=== PATIENT | male | born 1965 | race Caucasian/White ===

== ENCOUNTER 2020-07-01 13:35 | Emergency (ER) | payer BC, OTHER ==
[2020-07-01 13:59] VITALS: BP 128/89; PULSE 106
[2020-07-01] MEDS ORDERED: Sodium Chloride 0.9% 10 ML Syringe FLUSH PRN (14:02)
--- NOTE | 2020-07-01 14:45 | CR ---
Chest: Portable view of the chest was obtained. Comparison: No prior chest imaging is available. Findings: Lungs: Diffuse increased density within both sides of the chest are seen. No pleural effusions are seen on this study. Heart size and mediastinum: Within normal limits Bony structures: Mild scoliosis is noted within the spine. No acute osseous finding is seen. Impression: 1. Diffuse increased density on both sides of the chest. These findings are most likely due to diffuse Covid pneumonia. Diagnostic code #3
[2020-07-01] MEDS ORDERED: Potassium Chloride 20 MEQ Tab.ER PO ONE (16:16)
[2020-07-01] MEDS ORDERED: Sodium Chloride 0.9% 10 ML Syringe FLUSH STA (16:18)
[2020-07-01] MEDS ORDERED: Iopamidol 755 Mg/ML 100 ML Bottle IVPUSH ONE (16:18)
--- NOTE | 2020-07-01 16:18 | EDM.PDOC ---
ED HPI GENERAL MEDICAL PROBLEM - General Chief Complaint: Respiratory Problem Stated Complaint: COVID + 2 WEEKS AGO LOW O2 SENT BY CLINIC Time Seen by Provider: 07/01/20 13:52 - History of Present Illness INITIAL COMMENTS - FREE TEXT/NARRATIVE: Patient is a 55-year-old male presenting to the emergency department with complaints of worsening shortness of breath as well as ongoing fever, chills, of taste and smell, and decreased appetite. Symptoms began about 3 weeks ago. He was diagnosed as Covid positive on 21 June. He states that he thought he was improving as he was able to eat better and was regaining some of his taste over the last few days. This morning upon waking, he was significantly more short of breath. He denies any significant cough. He has had no abdominal pain, nausea, vomiting, or diarrhea. He was seen at the [place] walk-in [facility] prior to coming to the ER. He was sent here due to an oxygen saturation of 81% on room air after ambulation. Headache Pain Score (Numeric/FACES): 5 - Related Data Allergies Allergy/AdvReac Type Severity Reaction Status Date / Time No Known Allergies Allergy Verified 05/17/15 18:29 Home Meds: Home Meds . [No Known Home Meds] 05/17/15 [History] Past Medical History - Past Health History Medical/Surgical History: Denies Medical/Surgical History Social & Family History - Tobacco Use Tobacco Use Status *Q: Never Tobacco User - Caffeine Use Caffeine Use: Reports: Soda - Recreational Drug Use Recreational Drug Use: No ED ROS GENERAL - Review of Systems Review Of Systems: See Below Constitutional: Reports: Fever, Chills, Weakness, Fatigue HEENT: Reports: No Symptoms Respiratory: Reports: Shortness of Breath. Denies: Cough Cardiovascular: Reports: Dyspnea on Exertion. Denies: Chest Pain, Lightheadedness, Palpitations, Syncope Endocrine: Reports: No Symptoms GI/Abdominal: Reports: No Symptoms : Reports: No Symptoms Musculoskeletal: Reports: No Symptoms Skin: Reports: No Symptoms Neurological: Reports: Headache. Denies: Confusion Psychiatric: Reports: No Symptoms Hematologic/Lymphatic: Reports: No Symptoms Immunologic: Reports: No Symptoms ED EXAM, GENERAL - Physical Exam Exam: See Below Exam Limited By: No Limitations General Appearance: Alert, WD/WN, No Apparent Distress Respiratory/Chest: No Respiratory Distress, Lungs Clear, No Accessory Muscle Use, Chest Non-Tender, Rhonchi (faint throughout) Cardiovascular: Normal Peripheral Pulses, Regular Rate, Rhythm, No Edema, No Gallop, No JVD, No Murmur, No Rub GI/Abdominal: Normal Bowel Sounds, Soft, Non-Tender, No Organomegaly, No Distention, No Abnormal Bruit, No Mass Neurological: Alert, Oriented, CN II-XII Intact, Normal Cognition, Normal Gait, Normal Reflexes, No Motor/Sensory Deficits Psychiatric: Normal Affect, Normal Mood Skin Exam: Warm, Dry, Intact, Normal Color, No Rash Course - Vital Signs Last Recorded V/S: Last Vital Signs Temp 98.7 F 07/01/20 13:56 Pulse 106 H 07/01/20 13:56 Resp 20 07/01/20 13:56 BP 128/89 07/01/20 13:56 Pulse Ox 83 L 07/01/20 13:56 - Orders/Labs/Meds Orders: Active Orders 24 hr Category Date Time Status Peripheral IV Insertion Adult [OM.PC] Stat Oth 07/01/20 14:02 Ordered Labs: Laboratory Tests 07/01/20 07/01/20 07/01/20 Range/Units 14:21 14:30 14:30 WBC 9.71 H (4.23-9.07) K/mm3 RBC 5.13 (4.63-6.08) M/mm3 Hgb 14.8 (13.7-17.5) gm/dl Hct 46.5 (40.1-51.0) % MCV 90.6 (79.0-92.2) fl MCH 28.8 (25.7-32.2) pg MCHC 31.8 L (32.2-35.5) g/dl RDW Std Deviation 44.0 H (35.1-43.9) fL Plt Count 599 H (163-337) K/mm3 MPV 9.1 L (9.4-12.3) fl Neut % (Auto) 79.3 H (34.0-67.9) % Lymph % (Auto) 9.2 L (21.8-53.1) % [place] % (Auto) 10.2 (5.3-12.2) % Eos % (Auto) 0.2 L (0.8-7.0) Baso % (Auto) 0.3 (0.1-1.2) % Neut # (Auto) 7.70 H (1.78-5.38) K/mm3 Lymph # (Auto) 0.89 L (1.32-3.57) K/mm3 [place] # (Auto) 0.99 H (0.30-0.82) K/mm3 Eos # (Auto) 0.02 L (0.04-0.54) K/mm3 Baso # (Auto) 0.03 (0.01-0.08) K/mm3 Manual Slide Review Normal smear D-Dimer, Quantitative 1.71 H (0.19-0.50) mg/L Puncture Site Lt radial ABG pH 7.62 H* (7.35-7.45) ABG pCO2 27.4 L (35.0-45.0) mmHg ABG pO2 52.0 L (80.0-100.0) mmHg ABG HCO3 28.4 H (22.0-26.0) meq/L ABG O2 Saturation 87.0 L (96.0-97.0) % ABG Base Excess 7.6 H (-2-2.0) Kurt Test Positive A-a Gradient 63 mmHg O2 Delivery Device Room air Oxygen Flow Rate 0.0 FiO2 21.00 (21.00-100.00) % Sodium (136-145) mEq/L Potassium (3.5-5.1) mEq/L Chloride (98-107) mEq/L Carbon Dioxide (21-32) mEq/L Anion Gap (5-15) BUN (7-18) mg/dL Creatinine (0.7-1.3) mg/dL Est Cr Clr Drug Dosing mL/min Estimated GFR (MDRD) (>60) mL/min BUN/Creatinine Ratio (14-18) Glucose (74-106) mg/dL Calcium (8.5-10.1) mg/dL Ferritin (26-388) ng/ml Total Bilirubin (0.2-1.0) mg/dL AST (15-37) U/L ALT (16-63) U/L Alkaline Phosphatase (46-116) U/L Lactate Dehydrogenase (85-227) U/L Troponin I (0.00-0.056) ng/mL C-Reactive Protein (<1.0) mg/dL NT-Pro-B Natriuret Pep (0-125) pg/mL Total Protein (6.4-8.2) g/dl Albumin (3.4-5.0) g/dl Globulin gm/dL Albumin/Globulin Ratio (1-2) 07/01/20 07/01/20 07/01/20 Range/Units 14:30 14:30 14:30 WBC (4.23-9.07) K/mm3 RBC (4.63-6.08) M/mm3 Hgb (13.7-17.5) gm/dl Hct (40.1-51.0) % MCV (79.0-92.2) fl MCH (25.7-32.2) pg MCHC (32.2-35.5) g/dl RDW Std Deviation (35.1-43.9) fL Plt Count (163-337) K/mm3 MPV (9.4-12.3) fl Neut % (Auto) (34.0-67.9) % Lymph % (Auto) (21.8-53.1) % [place] % (Auto) (5.3-12.2) % Eos % (Auto) (0.8-7.0) Baso % (Auto) (0.1-1.2) % Neut # (Auto) (1.78-5.38) K/mm3 Lymph # (Auto) (1.32-3.57) K/mm3 [place] # (Auto) (0.30-0.82) K/mm3 Eos # (Auto) (0.04-0.54) K/mm3 Baso # (Auto) (0.01-0.08) K/mm3 Manual Slide Review D-Dimer, Quantitative (0.19-0.50) mg/L Puncture Site ABG pH (7.35-7.45) ABG pCO2 (35.0-45.0) mmHg ABG pO2 (80.0-100.0) mmHg ABG HCO3 (22.0-26.0) meq/L ABG O2 Saturation (96.0-97.0) % ABG Base Excess (-2-2.0) Kurt Test A-a Gradient mmHg O2 Delivery Device Oxygen Flow Rate FiO2 (21.00-100.00) % Sodium 136 (136-145) mEq/L Potassium 2.9 L (3.5-5.1) mEq/L Chloride 96 L (98-107) mEq/L Carbon Dioxide 32 (21-32) mEq/L Anion Gap 10.9 (5-15) BUN 9 (7-18) mg/dL Creatinine 1.2 (0.7-1.3) mg/dL Est Cr Clr Drug Dosing 70.97 mL/min Estimated GFR (MDRD) > 60 (>60) mL/min BUN/Creatinine Ratio 7.5 L (14-18) Glucose 106 (74-106) mg/dL Calcium 9.1 (8.5-10.1) mg/dL Ferritin (26-388) ng/ml Total Bilirubin 0.9 (0.2-1.0) mg/dL AST 55 H (15-37) U/L ALT 54 (16-63) U/L Alkaline Phosphatase 71 (46-116) U/L Lactate Dehydrogenase 391 H (85-227) U/L Troponin I < 0.017 (0.00-0.056) ng/mL C-Reactive Protein 31.9 H* (<1.0) mg/dL NT-Pro-B Natriuret Pep 151 H (0-125) pg/mL Total Protein 7.7 (6.4-8.2) g/dl Albumin 2.3 L (3.4-5.0) g/dl Globulin 5.4 gm/dL Albumin/Globulin Ratio 0.4 L (1-2) 07/01/20 Range/Units 14:30 WBC (4.23-9.07) K/mm3 RBC (4.63-6.08) M/mm3 Hgb (13.7-17.5) gm/dl Hct (40.1-51.0) % MCV (79.0-92.2) fl MCH (25.7-32.2) pg MCHC (32.2-35.5) g/dl RDW Std Deviation (35.1-43.9) fL Plt Count (163-337) K/mm3 MPV (9.4-12.3) fl Neut % (Auto) (34.0-67.9) % Lymph % (Auto) (21.8-53.1) % [place] % (Auto) (5.3-12.2) % Eos % (Auto) (0.8-7.0) Baso % (Auto) (0.1-1.2) % Neut # (Auto) (1.78-5.38) K/mm3 Lymph # (Auto) (1.32-3.57) K/mm3 [place] # (Auto) (0.30-0.82) K/mm3 Eos # (Auto) (0.04-0.54) K/mm3 Baso # (Auto) (0.01-0.08) K/mm3 Manual Slide Review D-Dimer, Quantitative (0.19-0.50) mg/L Puncture Site ABG pH (7.35-7.45) ABG pCO2 (35.0-45.0) mmHg ABG pO2 (80.0-100.0) mmHg ABG HCO3 (22.0-26.0) meq/L ABG O2 Saturation (96.0-97.0) % ABG Base Excess (-2-2.0) Kurt Test A-a Gradient mmHg O2 Delivery Device Oxygen Flow Rate FiO2 (21.00-100.00) % Sodium (136-145) mEq/L Potassium (3.5-5.1) mEq/L Chloride (98-107) mEq/L Carbon Dioxide (21-32) mEq/L Anion Gap (5-15) BUN (7-18) mg/dL Creatinine (0.7-1.3) mg/dL Est Cr Clr Drug Dosing mL/min Estimated GFR (MDRD) (>60) mL/min BUN/Creatinine Ratio (14-18) Glucose (74-106) mg/dL Calcium (8.5-10.1) mg/dL Ferritin 2267 H (26-388) ng/ml Total Bilirubin (0.2-1.0) mg/dL AST (15-37) U/L ALT (16-63) U/L Alkaline Phosphatase (46-116) U/L Lactate Dehydrogenase (85-227) U/L Troponin I (0.00-0.056) ng/mL C-Reactive Protein (<1.0) mg/dL NT-Pro-B Natriuret Pep (0-125) pg/mL Total Protein (6.4-8.2) g/dl Albumin (3.4-5.0) g/dl Globulin gm/dL Albumin/Globulin Ratio (1-2) Meds: Medications Discontinued Medications Generic Name Dose Route Start Last Admin Trade Name Randolph PRN Reason Stop Dose Admin Dexamethasone 6 mg 07/01/20 16:43 07/01/20 17:15 Decadron IVPUSH 07/01/20 16:44 6 mg ONETIME ONE Administration Sodium Chloride 100 mls @ 60 mls/min 07/01/20 16:30 07/01/20 16:21 Normal Saline IV 60 mls/min ASDIRECTED LEXUS Administration Iopamidol 100 ml 07/01/20 16:18 07/01/20 16:20 Isovue-370 (76%) IVPUSH 07/01/20 16:19 100 ml ONETIME ONE Administration Potassium Chloride 40 meq 07/01/20 16:16 07/01/20 17:13 Klor-Con M20 PO 07/01/20 16:17 40 meq ONETIME ONE Administration Sodium Chloride 10 ml 07/01/20 14:02 07/01/20 15:21 Saline Flush FLUSH 10 ml ASDIRECTED PRN Administration Keep Vein Open Sodium Chloride 10 ml 07/01/20 16:18 07/01/20 16:20 Saline Flush FLUSH 07/01/20 16:19 10 ml NOW STA Administration - Re-Assessments/Exams Free Text/Narrative Re-Assessment/Exam: Patient is a 55-year-old male presenting to the emergency department with complaints of worsening shortness of breath, as well as ongoing fever, chills, loss of taste and smell, and decreased appetite. Symptoms have been occurring for 3 weeks and he was diagnosed Covid positive on 21 June. Patient has had shortness of breath with exertion throughout much of his illness, however it was substantially worse today. He is denied any chest pain. Oxygen saturation in triage was 83% on room air. I have ordered Covid work-up including CBC, CMP, CRP, D-dimer, troponin, proBNP, LDH, ferritin, ABGs, 1 view chest x-ray, and EKG. If D-dimer is elevated, as I suspect it will be, I will complete a CT ang iogram of the chest to rule out PEs. 07/01/20 17:07 Hematology was significant for WBC minimally elevated at 9.71, D-dimer 1.71, potassium 2.9 ferritin 2267, LDH 391, CRP 31.9, proBNP 151. ABGs completed on room air show a pH of 7.62, PCO2 27.4, PO2 52.0 bicarb 28.4 and oxygen saturation of 87%. Chest x-ray shows diffuse bilateral infiltrates. CT angiogram the chest shows diffuse parenchymal densities within both sides of the chest most likely due to pneumonia, possibly Covid pneumonia. No findings of pulmonary embolism. I have ordered dexamethasone 6 mg IV as well as potassium 40 mEq p.o. Called [facility] and spoke with Dr. Lozano. He has accepted the patient for transfer. Departure - Departure Time of Disposition: 17:07 Disposition: DC/Tfer to [facility] 02 Condition: Good Clinical Impression: Pneumonia due to COVID-19 virus, Hypoxia - Discharge Information Referrals: PCP,None [Primary Care Provider] - Forms: ED Department Discharge Sepsis Event Note (ED) - Evaluation Sepsis Screening Result: No Definite Risk - My Orders Last 24 Hours: My Active Orders 07/01/20 14:02 Peripheral IV Insertion Adult [OM.PC] Stat - Assessment/Plan Last 24 Hours: My Active Orders 07/01/20 14:02 Peripheral IV Insertion Adult [OM.PC] Stat
[2020-07-01] MEDS ORDERED: Sodium Chloride 0.9% 100 ML IV SCH (16:30)
--- NOTE | 2020-07-01 16:37 | CT ---
CT chest Technique: Multiple axial sections through the chest were obtained. Intravenous contrast was utilized. Study has been performed as a pulmonary angiogram protocol. Findings: Pulmonary arteries: Pulmonary arteries are fairly well opacified. No filling defects are appreciated to indicate definite pulmonary embolism. Mediastinum and pleural regions: Mediastinum shows small scattered lymph nodes which are believed to be within normal limits. Thoracic aorta shows no aneurysm. No axillary adenopathy is seen. No pericardial thickening is seen. Abdominal structures: Minimal hiatal hernia is present. Small portion of the visualized upper abdominal structures show no additional abnormality. Lungs: Multiple areas of parenchymal density are seen throughout both lungs involving the right and left lower and upper lungs. No pleural effusions are seen. Bones: Bone window settings were reviewed which show scattered disc space narrowing within the spine. Several compression deformities are seen within the mid thoracic spine which appear old. Scattered endplate osteophytes are also seen. Impression: 1. Diffuse parenchymal densities within both sides of the chest most likely due to pneumonia, possibly COVID pneumonia. 2. No findings of pulmonary embolism. 3. Other findings as noted above which are believed to be incidental. Diagnostic code #3
[2020-07-01] MEDS ORDERED: Dexamethasone 4 MG/ML SDV IVPUSH ONE (16:43)
== END 2020-07-01 18:22 ==
LOC: JD.ED 13:35
DX: U07.1 COVID-19 (principal); J12.89 Other viral pneumonia; R09.02 Hypoxemia
CPT/HCPCS: 36415; 36600; 71045; 71275; 80053; 82728; 82803; 83615; 83880; 84484; 85025; 85379; 86140; 96374; 99285; A9270; J1100; Q9967

== ENCOUNTER 2020-07-10 11:29 | Inpatient (IN) | payer BC ==
[2020-07-10] MEDS: Sodium Chloride 0.9% 10 ML Syringe FLUSH PRN ×2 (12:01→13:29)
--- NOTE | 2020-07-10 12:05 | EDM.PDOC ---
ED HPI GENERAL MEDICAL PROBLEM - General Chief Complaint: Respiratory Problem Stated Complaint: CHEST TIGHTNESS/COUGHING BLOOD. COVID + Time Seen by Provider: 07/10/20 11:39 Source of Information: Reports: Patient, Old Records, RN Notes Reviewed History Limitations: Reports: No Limitations - History of Present Illness INITIAL COMMENTS - FREE TEXT/NARRATIVE: Patient is a 55-year-old male who presents to the ED for his ongoing illness with COVID-19. The patient became symptomatic with [id number] illness on June 16, and diagnosed with COVID-19 on 06/21. The patient was seen in this ER on July 01, and was hospitalized at [facility] for 5 days with IV therapy, oxygen for his COVID-19 disease. He was discharged on Tuesday, July 07 with home oxygen at 3 L via nasal cannula. Patient notes that the first few days went pretty good, but today he had to increase his oxygen to 4 L via nasal cannula to a state what he said were O2 sats in the high to mid 80s. He did use his inhaler that was given to him as well, and notes that he has had some increased chest pressure, and coughing. He called the nurse at [facility] in [place], and she advised him to come to the ER for evaluation. Patient is set up to see Dr. Montoya on Tuesday for continuing health care. Patient takes aspirin, and was sent home with some dexamethasone as well for treatment of his COVID-19 disease. He has not had any fevers or chills, nausea/vomiting/diarrhea, headache, body aches. Patient's O2 sats on 4 L of oxygen are 92%, pulse rate is 102 bpm, but he states he did use his albuterol inhaler prior to coming to the ER for his coughing. He is afebrile at 97.5 �F, he is in no visible respiratory distress, and respiratory rate is 20. Chest Pain Score (Numeric/FACES): 3 - Related Data Allergies Allergy/AdvReac Type Severity Reaction Status Date / Time No Known Allergies Allergy Verified 05/17/15 18:29 Home Meds: Home Meds Acetaminophen [Tylenol] 500 mg PO Q4H PRN 07/10/20 [History] Albuterol Sulfate [Proventil Hfa] 1 puff INH ASDIRECTED 07/10/20 [History] Aspirin [Aspirin EC] 81 mg PO DAILY 07/10/20 [History] dexAMETHasone [Dexamethasone] 6 mg PO DAILY 07/10/20 [History] Past Medical History - Past Health History Medical/Surgical History: Denies Medical/Surgical History - Infectious Disease History Infectious Disease History: Reports: Novel Coronavirus (06/16/2020) Social & Family History - Tobacco Use Tobacco Use Status *Q: Never Tobacco User - Caffeine Use Caffeine Use: Reports: Soda, Tea - Recreational Drug Use Recreational Drug Use: No ED ROS GENERAL - Review of Systems Review Of Systems: Comprehensive ROS is negative, except as noted in HPI. ED EXAM, GENERAL - Physical Exam Exam: See Below Exam Limited By: No Limitations General Appearance: Alert, WD/WN, No Apparent Distress Respiratory/Chest: No Respiratory Distress, Lungs Clear, Normal Breath Sounds, No Accessory Muscle Use, Chest Non-Tender Cardiovascular: Normal Peripheral Pulses, Regular Rate, Rhythm, No Edema, No Murmur Peripheral Pulses: 2+: Radial (L), Radial (R) Extremities: Normal Inspection, Normal Capillary Refill Neurological: Alert, Oriented, Normal Cognition, No Motor/Sensory Deficits Psychiatric: Normal Affect, Normal Mood, Anxious (slightly) Skin Exam: Warm, Dry, Intact, Normal Color, No Rash #1 Interpretation EKG Date: 07/10/20 Time: 12:05 Rhythm: NSR Rate (Beats/Min): 92 [place]: Normal P-Wave: Present QRS: Normal ST-T: Normal QT: Normal WA/PQ Interval: short @ <110ms Comparison: NA - No Prior EKG EKG Interpretation Comments: No obvious ischemia or acute ST changes noted, reviewed by myself and Dr. Fletcher. Course - Vital Signs Last Recorded V/S: Last Vital Signs Temp 97.5 F 07/10/20 11:42 Pulse 102 H 07/10/20 11:42 Resp 20 07/10/20 11:42 BP 125/85 07/10/20 11:42 Pulse Ox 92 L 07/10/20 11:42 - Orders/Labs/Meds Orders: Active Orders 24 hr Category Date Time Status Admission Status [Patient Status] [ADT] Routine ADT 07/10/20 14:59 Active EKG Documentation Completion [RC] STAT Care 07/10/20 11:58 Active Notify Provider Consults [RC] ASDIRECTED Care 07/10/20 13:01 Active Peripheral IV Care [RC] . DIRECTED Care 07/10/20 11:58 Active Consult to Physician [CONS] Stat Cons 07/10/20 12:58 Active Chest 1V Frontal [CR] Stat Exams 07/10/20 11:56 Taken Chest 1V-Tube Placement Chk NC [CR] Stat Exams 07/10/20 14:00 Taken Sodium Chloride 0.9% [Normal Saline] 1,000 ml Med 07/10/20 13:30 Active IV ASDIRECTED Sodium Chloride 0.9% [Saline Flush] Med 07/10/20 11:56 Active 10 ml FLUSH ASDIRECTED PRN Peripheral IV Insertion Adult [OM.PC] Routine Oth 07/10/20 11:56 Ordered Medication Orders Sodium Chloride (Normal Saline) 1,000 mls @ 150 mls/hr IV ASDIRECTED LEXUS Last Admin: 07/10/20 13:29 Dose: 75 mls/hr Documented by: TAHIR Sodium Chloride (Saline Flush) 10 ml FLUSH ASDIRECTED PRN PRN Reason: Keep Vein Open Last Admin: 07/10/20 13:29 Dose: 10 ml Documented by: Admin: 07/10/20 12:01 Dose: 10 ml Documented by: GUME Labs: Laboratory Tests 07/10/20 07/10/20 07/10/20 Range/Units 11:45 11:45 11:45 WBC 22.93 H (4.23-9.07) K/mm3 RBC 5.52 (4.63-6.08) M/mm3 Hgb 16.2 (13.7-17.5) gm/dl Hct 50.6 (40.1-51.0) % MCV 91.7 (79.0-92.2) fl MCH 29.3 (25.7-32.2) pg MCHC 32.0 L (32.2-35.5) g/dl RDW Std Deviation 46.2 H (35.1-43.9) fL Plt Count 554 H (163-337) K/mm3 MPV 9.6 (9.4-12.3) fl Neutrophils % (Manual) 92 H (40-60) % Band Neutrophils % 0 (0-10) % Lymphocytes % (Manual) 7 L (20-40) % Atypical Lymphs % 0 % Monocytes % (Manual) 1 L (2-10) % Eosinophils % (Manual) 0 L (0.8-7.0) % Basophils % (Manual) 0 L (0.2-1.2) Platelet Estimate Increased Plt Morphology Comment See note RBC Morph Comment Normal PT 10.9 (9.7-12.0) SECONDS INR 1.02 APTT 28.4 (21.7-31.4) SECONDS D-Dimer, Quantitative 2.15 H (0.19-0.50) mg/L Sodium 137 (136-145) mEq/L Potassium 3.9 (3.5-5.1) mEq/L Chloride 99 (98-107) mEq/L Carbon Dioxide 27 (21-32) mEq/L Anion Gap 14.9 (5-15) BUN 18 (7-18) mg/dL Creatinine 1.3 (0.7-1.3) mg/dL Est Cr Clr Drug Dosing 65.51 mL/min Estimated GFR (MDRD) 57 (>60) mL/min BUN/Creatinine Ratio 13.8 L (14-18) Glucose 100 (74-106) mg/dL Calcium 9.4 (8.5-10.1) mg/dL Total Bilirubin 0.9 (0.2-1.0) mg/dL AST 20 (15-37) U/L ALT 81 H (16-63) U/L Alkaline Phosphatase 88 (46-116) U/L Troponin I < 0.017 (0.00-0.056) ng/mL C-Reactive Protein 1.6 H* (<1.0) mg/dL Total Protein 7.7 (6.4-8.2) g/dl Albumin 2.9 L (3.4-5.0) g/dl Globulin 4.8 gm/dL Albumin/Globulin Ratio 0.6 L (1-2) Meds: Medications Generic Name Dose Route Start Last Admin Trade Name Freq PRN Reason Stop Dose Admin Sodium Chloride 1,000 mls @ 150 mls/hr 07/10/20 13:30 07/10/20 13:29 Normal Saline IV 75 mls/hr ASDIRECTED LEXUS Administration Sodium Chloride 10 ml 07/10/20 11:56 07/10/20 13:29 Saline Flush FLUSH 10 ml ASDIRECTED PRN Administration Keep Vein Open Discontinued Medications Generic Name Dose Route Start Last Admin Trade Name Randolph PRN Reason Stop Dose Admin Hydromorphone HCl 1 mg 07/10/20 13:13 07/10/20 14:12 Dilaudid IVPUSH 07/10/20 13:14 0.5 mg ONETIME ONE Administration Lidocaine/Epinephrine 20 ml 07/10/20 13:14 07/10/20 13:30 Xylocaine 1% With Epinephrine 1:100,000 INJECT 07/10/20 13:15 20 ml ONETIME ONE Administration Midazolam HCl 2 mg 07/10/20 13:14 07/10/20 13:28 Versed 1 Mg/Ml IVPUSH 07/10/20 13:15 1 mg ONETIME ONE Administration - Re-Assessments/Exams Free Text/Narrative Re-Assessment/Exam: 07/10/20 12:06 Patient presents to the ED for the evaluation of his ongoing COVID-19 disease. We will repeat a chest x-ray, EKG, and some labs for further evaluation. He did have a CTA done at his last ER visit, this was negative for pulmonary embolus, if his D-dimer seems to have risen from his last value, we will entertain the thought of repeating that for further evaluation of possible PE. 07/10/20 12:54 Chest x-ray demonstrates a pneumothorax of the right upper and lower lungs; reviewed with Dr. Fletcher. Official radiology read is still pending at this time. I did call Dr. Wynn, he will come in to evaluate and place a chest tube. Patient's white count is elevated at 22.93, D-dimer elevated from previous 2.15 from 1.71, the patient's CRP however has improved from 30s, to 1.9. Departure - Departure Time of Disposition: 15:02 Disposition: Refer to Observation Condition: Good Clinical Impression: Pneumothorax, right - Discharge Information Referrals: Mike Montoya MD [Primary Care Provider] - Forms: ED Department Discharge Sepsis Event Note (ED) - Evaluation Sepsis Screening Result: No Definite Risk - Focused Exam Vital Signs: Vital Signs Temp Pulse Resp BP Pulse Ox 07/10/20 11:42 97.5 F 102 H 20 125/85 92 L - My Orders Last 24 Hours: My Active Orders 07/10/20 11:56 Chest 1V Frontal [CR] Stat Sodium Chloride 0.9% [Saline Flush] 10 ml FLUSH ASDIRECTED PRN Peripheral IV Insertion Adult [OM.PC] Routine 07/10/20 11:58 EKG Documentation Completion [RC] STAT Peripheral IV Care [RC] . DIRECTED 07/10/20 12:58 Consult to Physician [CONS] Stat 07/10/20 13:01 Notify Provider Consults [RC] ASDIRECTED 07/10/20 14:00 Chest 1V-Tube Placement Chk NC [CR] Stat 07/10/20 14:59 Admission Status [Patient Status] [ADT] Routine - Assessment/Plan Last 24 Hours: My Active Orders 07/10/20 11:56 Chest 1V Frontal [CR] Stat Sodium Chloride 0.9% [Saline Flush] 10 ml FLUSH ASDIRECTED PRN Peripheral IV Insertion Adult [OM.PC] Routine 07/10/20 11:58 EKG Documentation Completion [RC] STAT Peripheral IV Care [RC] . DIRECTED 07/10/20 12:58 Consult to Physician [CONS] Stat 07/10/20 13:01 Notify Provider Consults [RC] ASDIRECTED 07/10/20 14:00 Chest 1V-Tube Placement Chk NC [CR] Stat 07/10/20 14:59 Admission Status [Patient Status] [ADT] Routine
[2020-07-10] MEDS ORDERED: HYDROmorphone 1 MG/ML Syringe IVPUSH ONE (13:13)
[2020-07-10] MEDS ORDERED: Midazolam 1 MG/ML 2 ML SDV IVPUSH ONE (13:14)
[2020-07-10] MEDS ORDERED: Lidocaine 1% with EPINEPHrine 1:100,000 20 ML MDV INJECT ONE (13:14)
[2020-07-10] MEDS ORDERED: Sodium Chloride 0.9% 1,000 ML IV SCH (13:30)
[2020-07-10] MEDS: Acetaminophen 325 MG Tab PO PRN (18:15)
[2020-07-10] MEDS ORDERED: oxyCODONE 5 MG Tab PO PRN (18:31)
--- NOTE | 2020-07-10 18:41 | PCM.HP.2 ---
H&P History of Present Illness - General Date of Service: 07/10/20 Admit Problem/Dx: Admission Diagnosis/Problem Admission Diagnosis/Problem Pneumothorax on right Source of Information: Patient History Limitations: Reports: No Limitations - History of Present Illness Initial Comments - Free Text/Narative: Patient was diagnosed with Covid-19 on 06/21. The patient was seen in this ER on July 01, and was hospitalized at [facility] for 5 days with IV therapy, oxygen for his COVID-19 disease. He was discharged on July 07 with home oxygen at 3 L via nasal cannula. Patient notes that the first few days went pretty good, but today he had to increase his oxygen to 4 L via nasal cannula to a state what he said were O2 sats in the high to mid 80s. He did use his inhaler that was given to him as well, and notes that he has had some increased chest pressure, and coughing. He called the nurse at [facility] in [place], and she advised him to come to the ER for evaluation. In the ED WBC was 22, CXR showed right sided pneumothorax. I was asked to evaluate the patient and place a chest tube. On my evaluation, the patient reported to have been feeling well until today when suddenly his breathing and saturations dropped. Onset of Symptoms: Reports: Today, Sudden Duration of Symptoms: Reports: Day(s): (1) Location: Reports: Chest Quality: Reports: Other Severity: Mild Improves with: Reports: None Worsens with: Reports: None Associated Symptoms: Reports: Shortness of Breath Chest Pain Score (Numeric/FACES): 3 - Related Data Allergies/Adverse Reactions: Allergies Allergy/AdvReac Type Severity Reaction Status Date / Time No Known Allergies Allergy Verified 05/17/15 18:29 Home Medications: Home Meds Acetaminophen [Tylenol] 500 mg PO Q4H PRN 07/10/20 [History] Albuterol Sulfate [Proventil Hfa] 2 puff INH ASDIRECTED 07/10/20 [History] Aspirin [Aspirin EC] 81 mg PO DAILY 07/10/20 [History] dexAMETHasone [Dexamethasone] 6 mg PO DAILY 07/10/20 [History] Past Medical History - Past Health History Medical/Surgical History: Denies Medical/Surgical History - Infectious Disease History Infectious Disease History: Reports: Chicken Pox, Novel Coronavirus Social & Family History - Family History Family Medical History: No Pertinent Family History - Tobacco Use Tobacco Use Status *Q: Never Tobacco User Second Hand Smoke Exposure: No - Caffeine Use Caffeine Use: Reports: Soda - Recreational Drug Use Recreational Drug Use: No H&P Review of Systems - Review of Systems: Review Of Systems: See Below General: Reports: No Symptoms HEENT: Reports: No Symptoms Pulmonary: Reports: Shortness of Breath Cardiovascular: Reports: No Symptoms, Chest Pain (right chest) Gastrointestinal: Reports: No Symptoms Genitourinary: Reports: No Symptoms Musculoskeletal: Reports: No Symptoms Skin: Reports: No Symptoms Psychiatric: Reports: No Symptoms Neurological: Reports: No Symptoms Hematologic/Lymphatic: Reports: No Symptoms Immunologic: Reports: No Symptoms Exam - Exam Exam: See Below - Vital Signs Vital Signs: Last Vital Signs Temp 97.5 F 07/10/20 11:42 Pulse 102 H 07/10/20 11:42 Resp 20 07/10/20 11:42 BP 125/85 07/10/20 11:42 Pulse Ox 92 L 07/10/20 11:42 Weight: 72.03 kg - Exam General: Alert, Oriented, Cooperative Lungs: Normal Respiratory Effort, Decreased Breath Sounds (right side), Crackles (at the left base) Cardiovascular: Regular Rate GI/Abdominal Exam: Soft, Non-Tender, No Organomegaly, No Distention - Patient Data Lab Results Last 24 hrs: Laboratory Results - last 24 hr 07/10/20 07/10/20 07/10/20 Range/Units 11:45 11:45 11:45 WBC 22.93 H (4.23-9.07) K/mm3 RBC 5.52 (4.63-6.08) M/mm3 Hgb 16.2 (13.7-17.5) gm/dl Hct 50.6 (40.1-51.0) % MCV 91.7 (79.0-92.2) fl MCH 29.3 (25.7-32.2) pg MCHC 32.0 L (32.2-35.5) g/dl RDW Std Deviation 46.2 H (35.1-43.9) fL Plt Count 554 H (163-337) K/mm3 MPV 9.6 (9.4-12.3) fl Neutrophils % (Manual) 92 H (40-60) % Band Neutrophils % 0 (0-10) % Lymphocytes % (Manual) 7 L (20-40) % Atypical Lymphs % 0 % Monocytes % (Manual) 1 L (2-10) % Eosinophils % (Manual) 0 L (0.8-7.0) % Basophils % (Manual) 0 L (0.2-1.2) Platelet Estimate Increased Plt Morphology Comment See note RBC Morph Comment Normal PT 10.9 (9.7-12.0) SECONDS INR 1.02 APTT 28.4 (21.7-31.4) SECONDS D-Dimer, Quantitative 2.15 H (0.19-0.50) mg/L Sodium 137 (136-145) mEq/L Potassium 3.9 (3.5-5.1) mEq/L Chloride 99 (98-107) mEq/L Carbon Dioxide 27 (21-32) mEq/L Anion Gap 14.9 (5-15) BUN 18 (7-18) mg/dL Creatinine 1.3 (0.7-1.3) mg/dL Est Cr Clr Drug Dosing 65.51 mL/min Estimated GFR (MDRD) 57 (>60) mL/min BUN/Creatinine Ratio 13.8 L (14-18) Glucose 100 (74-106) mg/dL Calcium 9.4 (8.5-10.1) mg/dL Total Bilirubin 0.9 (0.2-1.0) mg/dL AST 20 (15-37) U/L ALT 81 H (16-63) U/L Alkaline Phosphatase 88 (46-116) U/L Troponin I < 0.017 (0.00-0.056) ng/mL C-Reactive Protein 1.6 H* (<1.0) mg/dL Total Protein 7.7 (6.4-8.2) g/dl Albumin 2.9 L (3.4-5.0) g/dl Globulin 4.8 gm/dL Albumin/Globulin Ratio 0.6 L (1-2) Result Diagrams: 07/10/20 11:45 07/10/20 11:45 Sepsis Event Note - Evaluation Sepsis Screening Result: Sepsis Risk - Focused Exam Vital Signs: Vital Signs Temp Pulse Resp BP Pulse Ox 07/10/20 11:42 97.5 F 102 H 20 125/85 92 L Problem List Initiated/Reviewed/Updated: No Orders Last 24hrs: Active Orders 24 hr Category Date Time Status Admission Status [Patient Status] [ADT] Routine ADT 07/10/20 14:59 Active Antiembolic Devices [RC] PER UNIT ROUTINE Care 07/10/20 18:34 Ordered Cardiac Monitoring [RC] CONTINUOUS Care 07/10/20 18:32 Ordered EKG Documentation Completion [RC] STAT Care 07/10/20 11:58 Active Intake and Output [RC] QSHIFT Care 07/10/20 18:32 Ordered Notify Provider Consults [RC] ASDIRECTED Care 07/10/20 13:01 Active Oxygen Therapy [RC] PRN Care 07/10/20 18:32 Ordered Peripheral IV Care [RC] . DIRECTED Care 07/10/20 11:58 Active Pulse Oximetry [RC] CONTINUOUS Care 07/10/20 18:32 Ordered RT Post Treatment Assessment [RC] Click to Edit Care 07/10/20 18:37 Ordered RT Pre-Treatment Assessment [RC] Click to Edit Care 07/10/20 18:37 Ordered Up ad Meredith [RC] ASDIRECTED Care 07/10/20 18:31 Ordered VTE/DVT Education [RC] PER UNIT ROUTINE Care 07/10/20 18:32 Ordered Vital Signs [RC] Q4H Care 07/10/20 18:32 Ordered Consult to Physician [CONS] Stat Cons 07/10/20 12:58 Active Regular Diet [DIET] Diet 07/11/20 Breakfast Active Chest 1V Frontal [CR] AM Exams 07/11/20 05:11 Ordered Chest 1V Frontal [CR] AM Exams 07/12/20 05:11 Ordered Chest 1V Frontal [CR] AM Exams 07/13/20 05:11 Ordered Chest 1V Frontal [CR] AM Exams 07/14/20 05:11 Ordered Chest 1V Frontal [CR] AM Exams 07/15/20 05:11 Ordered Chest 1V Frontal [CR] Stat Exams 07/10/20 11:56 Taken Chest 1V-Tube Placement Chk NC [CR] Stat Exams 07/10/20 14:00 Taken Acetaminophen [TylenoL] Med 07/10/20 17:40 Active 650 mg PO Q4H PRN Albuterol [Proventil HFA] Med 07/10/20 18:45 Ordered 2 puff INH ASDIRECTED Aspirin [Halfprin] Med 07/11/20 09:00 Ordered 81 mg PO DAILY Docusate Sodium [Colace] Med 07/10/20 18:31 Ordered 100 mg PO BID PRN Enoxaparin [Lovenox] Med 07/10/20 18:45 Ordered 30 mg SUBCUT DAILY Sodium Chloride 0.9% [Saline Flush] Med 07/10/20 11:56 Active 10 ml FLUSH ASDIRECTED PRN dexAMETHasone Med 07/11/20 09:00 Ordered 6 mg PO DAILY oxyCODONE Med 07/10/20 18:31 Ordered 5 mg PO Q4H PRN Peripheral IV Insertion Adult [OM.PC] Routine Oth 07/10/20 11:56 Ordered Sequential Compression Device [OM.PC] Per Unit Routine Oth 07/10/20 18:33 Ordered Resuscitation Status Routine Resus Stat 07/10/20 17:50 Ordered Medication Orders Acetaminophen (Tylenol) 650 mg PO Q4H PRN PRN Reason: Pain Last Admin: 07/10/20 18:15 Dose: 650 mg Documented by: MAUREEN Albuterol (Proventil Hfa) gm INH ASDIRECTED LEXUS Aspirin (Halfprin) 81 mg PO DAILY LEXUS Dexamethasone (Dexamethasone) 6 mg PO DAILY LEXUS Docusate Sodium (Colace) 100 mg PO BID PRN PRN Reason: Constipation Enoxaparin Sodium (Lovenox) 30 mg SUBCUT DAILY LEXUS Oxycodone HCl (Oxycodone) 5 mg PO Q4H PRN PRN Reason: Pain (moderate 4-6) Sodium Chloride (Saline Flush) 10 ml FLUSH ASDIRECTED PRN PRN Reason: Keep Vein Open Last Admin: 07/10/20 13:29 Dose: 10 ml Documented by: Admin: 07/10/20 12:01 Dose: 10 ml Documented by: GUME Assessment/Plan Comment:: Patient with Covid-19 currently still on 3L oxygen who developed spontaneous pneumothorax on the right. Chest tube was placed at bedside without any complications. patient will be admitted for management. - reg diet - pain control - chest tube to LWS at -20 cm H2O - Ok to ambulate - DVT ppx - resume home medications
[2020-07-10] MEDS ORDERED: Albuterol 6.7 GM Inhaler INH PRN (18:45)
--- NOTE | 2020-07-10 19:55 | PROC ---
DATE OF OPERATION: 07/10/2020 SURGEON: Stacia Wynn MD PREOPERATIVE DIAGNOSIS: Right-sided pneumothorax. POSTOPERATIVE DIAGNOSIS: Right-sided pneumothorax. PROCEDURE: Chest tube placement in the right chest. 28 Fr chest tube COMPLICATION: No immediate complications. ANESTHESIA: Local anesthetic with 1% lidocaine as well as Versed and Dilaudid. INDICATION AND CONSENT: Mr. Nevarez is a 55-year-old male who was recently diagnosed with COVID-19. This diagnosis happened on 06/21. The patient eventually developed symptoms and was admitted to the hospital on July 01 for 5 days. The patient was discharged home on 3 L of oxygen and was saturating above 90%. The patient was doing well at home until this morning when he started having some chest tightness as well as difficulty maintaining good saturations and shortness of breath. He came to the emergency department where x-ray showed right-sided pneumothorax with 50% of the lung collapse. I was asked to come and evaluate the patient and talk to the patient. He did not have any other risk factors such as COPD, asthma, or any other obstructive lung, and he is a nonsmoker. Therefore, I recommended the patient for placement of a chest tube. The patient agreed to proceed with the procedure. We discussed risks, benefits, and alternatives. Informed consent was obtained. DESCRIPTION OF PROCEDURE: The patient was placed in proper position in supine position on the patient's bed with right arm extended above the head. We located the 5th intercostal space, which is about 1 intercostal space below the nipple and this area was prepped and draped in the usual sterile fashion. Then, we performed a time-out and began the procedure by infiltrating 20 mL of 1% lidocaine with epinephrine, making sure to go above the rib to avoid injury to the vessels. Once this was done, incision was made and chest tube was placed in the anterior axillary line at the level of 5th intercostal space. Incision was made. Subcutaneous tissues were dissected bluntly with hemostat and the rib was reached. We went above the rib and entered the pleural cavity with immediate expiration of air. This area was dilated bluntly again with a hemostat and a 28-Macedonian chest tube was placed and advanced to 15 cm cranially. This tube was secured in place with 0 silk stitches and sterile dressings were placed. Once this was done, x-ray was performed after chest tube placement and showed 95% reinflation of the right lung. The patient's symptoms were starting to resolve, was breathing better and saturations were above 95%. The patient will be admitted to the hospital for management of his chest tube and his pneumothorax. MARIZOL /[id number] MTDD
[2020-07-10] MEDS: Enoxaparin 40 MG/0.4 ML Syringe SUBCUT SCH (20:16)
[2020-07-11] MEDS: Acetaminophen 325 MG Tab PO PRN ×4 (00:56→20:59)
[2020-07-11] MEDS: Docusate Sodium 100 MG Cap PO PRN ×2 (06:40→21:00)
--- NOTE | 2020-07-11 08:57 | CR ---
Chest: Portable view of the chest was obtained. Comparison: Prior chest CT of 07/01/20 and chest x-ray of 07/01/20. Large right-sided pneumothorax is seen. Diffuse increased density within both lungs are noted. Heart size and mediastinum are within normal limits for portable technique. Impression: 1. Diffuse increased density within both sides of the chest. 2. Large right-sided pneumothorax is seen. Diagnostic code #5
--- NOTE | 2020-07-11 08:57 | CR ---
Chest: Portable view of the chest was obtained. Comparison: Prior chest x-ray performed earlier on the same date (11:51 AM). Right-sided chest tube is seen. Tip of the chest tube is within the right lung apex. Previous pneumothorax shows significant reduction. Diffuse increased density within both sides of the chest are seen. Heart size and mediastinum are normal. Scoliosis is noted within the spine. Impression: 1. Right-sided chest tube. Previous right-sided pneumothorax has been evacuated. 2. Diffuse increased density within both sides of the chest compatible with probable COVID pneumonia. This finding is felt to be present on prior chest x-ray of 07/01/20. Diagnostic code #3
[2020-07-11] MEDS: Aspirin 81 MG Tab.EC PO SCH (09:39)
[2020-07-11] MEDS: Dexamethasone 4 MG Tab PO SCH (09:39)
[2020-07-11] MEDS: Enoxaparin 40 MG/0.4 ML Syringe SUBCUT SCH (09:40)
--- NOTE | 2020-07-11 10:25 | CR ---
Chest: Portable view of the chest was obtained. Comparison: Prior chest x-ray of 07/10/20. Right chest tube is seen and has been slightly withdrawn from previous exam. No pneumothorax is seen at this time. Patchy areas of increased density are noted within both sides of the chest. Heart size and mediastinum are normal. Bony structures are grossly intact. Impression: 1. Right chest tube has been slightly withdrawn from prior exam. No pneumothorax is seen. 2. Diffuse increased density noted within both sides of the chest presumably due to stable COVID pneumonia. Diagnostic code #3
--- NOTE | 2020-07-11 14:06 | PCM.PN ---
- General Info Date of Service: 07/11/20 Admission Dx/Problem (Free Text): Admission Diagnosis/Problem Admission Diagnosis/Problem Pneumothorax on right Subjective Update: Patient is feeling better today. His breathing has improved. His pain is controlled. Functional Status: Reports: Pain Controlled, Tolerating Diet, Ambulating, Urinating - Review of Systems General: Reports: No Symptoms HEENT: Reports: No Symptoms Pulmonary: Reports: Other (pnemothorax, Covid lungs) Cardiovascular: Reports: No Symptoms Gastrointestinal: Reports: No Symptoms Genitourinary: Reports: No Symptoms Musculoskeletal: Reports: No Symptoms Skin: Reports: No Symptoms Neurological: Reports: No Symptoms - Patient Data Vitals - Most Recent: Last Vital Signs Temp 97.9 F 07/11/20 08:08 Pulse 78 07/11/20 08:08 Resp 20 07/11/20 08:08 BP 118/73 07/11/20 08:08 Pulse Ox 96 07/11/20 10:02 Weight - Most Recent: 71.668 kg I&O - Last 24 Hours: Intake & Output 07/10/20 07/11/20 07/11/20 22:59 06:59 14:59 Intake Total 320 400 Output Total 25 10 Balance 295 390 Med Orders - Current: Current Medications Acetaminophen (Tylenol) 650 mg PO Q4H PRN PRN Reason: Pain Last Admin: 07/11/20 12:49 Dose: 650 mg Documented by: Albuterol (Proventil Hfa) 0 gm INH Q4H PRN PRN Reason: SHORTNESS OF BREATH Aspirin (Halfprin) 81 mg PO DAILY [facility] Last Admin: 07/11/20 09:39 Dose: 81 mg Documented by: Dexamethasone (Dexamethasone) 6 mg PO DAILY [facility] Stop: 07/12/20 09:01 Last Admin: 07/11/20 09:39 Dose: 6 mg Documented by: Docusate Sodium (Colace) 100 mg PO BID PRN PRN Reason: Constipation Last Admin: 07/11/20 06:40 Dose: 100 mg Documented by: Enoxaparin Sodium (Lovenox) 40 mg SUBCUT DAILY [facility] [place] Last Admin: 07/11/20 09:40 Dose: 40 mg Documented by: Oxycodone HCl (Oxycodone) 5 mg PO Q4H PRN PRN Reason: Pain (moderate 4-6) Sodium Chloride (Saline Flush) 10 ml FLUSH ASDIRECTED PRN PRN Reason: Keep Vein Open Last Admin: 07/10/20 13:29 Dose: 10 ml Documented by: Discontinued Medications Hydromorphone HCl (Dilaudid) 1 mg IVPUSH ONETIME ONE Stop: 07/10/20 13:14 Last Admin: 07/10/20 14:12 Dose: 0.5 mg Documented by: Sodium Chloride (Normal Saline) 1,000 mls @ 150 mls/hr IV ASDIRECTED LEXUS Last Admin: 07/10/20 13:29 Dose: 75 mls/hr Documented by: Lidocaine/Epinephrine (Xylocaine 1% With Epinephrine 1:100,000) 20 ml INJECT ONETIME ONE Stop: 07/10/20 13:15 Last Admin: 07/10/20 13:30 Dose: 20 ml Documented by: Midazolam HCl (Versed 1 Mg/Ml) 2 mg IVPUSH ONETIME ONE Stop: 07/10/20 13:15 Last Admin: 07/10/20 13:28 Dose: 1 mg Documented by: - Exam General: Alert, Oriented, Cooperative Lungs: Normal Respiratory Effort, Crackles (bilaterally) Cardiovascular: Regular Rate, Regular Rhythm, No Murmurs Sepsis Event Note - Evaluation Sepsis Screening Result: No Definite Risk - Focused Exam Vital Signs: Vital Signs Temp Pulse Resp BP Pulse Ox Pulse Ox 07/11/20 10:02 96 07/11/20 08:08 97.9 F 78 20 118/73 95 07/11/20 05:31 95 07/11/20 04:24 97.0 F 72 20 114/83 96 - Problem List Review Problem List Initiated/Reviewed/Updated: No - My Orders Last 24 Hours: My Active Orders 07/10/20 17:40 Acetaminophen [TylenoL] 650 mg PO Q4H PRN 07/10/20 17:50 Resuscitation Status Routine 07/10/20 18:31 Up ad Meredith [RC] BID Docusate Sodium [Colace] 100 mg PO BID PRN oxyCODONE 5 mg PO Q4H PRN 07/10/20 18:32 Cardiac Monitoring [RC] CONTINUOUS Intake and Output [RC] 04,16 Oxygen Therapy [RC] PRN Pulse Oximetry [RC] Q4HR VTE/DVT Education [RC] DAILY Vital Signs [RC] Q4HR 07/10/20 18:33 Sequential Compression Device [OM.PC] Per Unit Routine 07/10/20 18:34 Antiembolic Devices [RC] BID 07/10/20 18:37 RT Post Treatment Assessment [RC] Click to Edit RT Pre-Treatment Assessment [RC] Click to Edit 07/10/20 18:45 Albuterol [Proventil HFA] 0 gm INH Q4H PRN Enoxaparin [Lovenox] 40 mg SUBCUT DAILY 07/11/20 Breakfast Regular Diet [DIET] 07/11/20 09:00 Aspirin [Halfprin] 81 mg PO DAILY dexAMETHasone 6 mg PO DAILY 07/12/20 05:11 Chest 1V Frontal [CR] AM 07/13/20 05:11 Chest 1V Frontal [CR] AM 07/14/20 05:11 Chest 1V Frontal [CR] AM 07/15/20 05:11 Chest 1V Frontal [CR] AM - Assessment Assessment:: Pt has fluffy lungs due to Covid 19 and now he sustained spontaneous pneumothorax. Improving. - Plan Plan:: - CXR shows resolution of pneumothorax but the chest tube has slid out slightly. - Please tape the chest tube against the abdominal wall to prevent further s liding and avoid putting tension on the tube. - Place chest tube to waterseal. Repeat CXR at 1900 - continue reg diet - pain control - Ok to ambulate - DVT ppx - resume home medications
--- NOTE | 2020-07-11 21:06 | PCM.SN.2 ---
- Free Text/Narrative Note: I reviewed the chest Xray. No significant change from prior. Will continue waterseal overnight unless Radiology read if much different or patient develops worsening symptoms at which point, the chest tube should be returned to suction. Will obtain another Chest Xray in the morning.
[2020-07-12] MEDS: Acetaminophen 325 MG Tab PO PRN ×3 (03:27→20:38)
[2020-07-12] MEDS: Dexamethasone 4 MG Tab PO SCH (08:21)
[2020-07-12] MEDS: Enoxaparin 40 MG/0.4 ML Syringe SUBCUT SCH (08:22)
[2020-07-12] MEDS: Aspirin 81 MG Tab.EC PO SCH (08:23)
--- NOTE | 2020-07-12 09:11 | CR ---
Chest: Portable view of the chest was obtained. Comparison: Prior chest x-ray of 07/11/20. Stable position of the right-sided chest tube is seen. Diffuse parenchymal infiltrates are seen which are stable. Heart size and mediastinum are stable. No acute osseous change is noted. No definite pneumothorax is seen. Impression: 1. Stable position of right-sided chest tube. 2. Diffuse parenchymal infiltrate remains unchanged. 3. No pneumothorax is seen. Diagnostic code #3
--- NOTE | 2020-07-12 09:19 | CR ---
Chest: Portable view of the chest was obtained. Comparison: Prior chest x-ray of 07/11/20. Heart size and mediastinum are normal. Right-sided chest tube is stable. Diffuse parenchymal infiltrates are seen which are stable. Scoliosis and degenerative change is noted within the spine. No acute osseous finding is appreciated. Impression: 1. Stable right-sided chest tube with no pneumothorax. 2. Diffuse parenchymal infiltrates which are stable. Diagnostic code #3 I agree with preliminary report from ad, finalized on 07/11/20, 9:01 PM [employer]
--- NOTE | 2020-07-12 11:34 | PCM.PN ---
- General Info Date of Service: 07/12/20 Admission Dx/Problem (Free Text): Admission Diagnosis/Problem Admission Diagnosis/Problem Pneumothorax on right Subjective Update: doing well. no trouble breathing. pain is controlled with tylenol. No nausea or vomiting Functional Status: Reports: Pain Controlled, Tolerating Diet, Ambulating, Urinating - Review of Systems General: Reports: No Symptoms HEENT: Reports: No Symptoms Pulmonary: Reports: No Symptoms, Other (on supplemental oxygen) Cardiovascular: Reports: No Symptoms Gastrointestinal: Reports: No Symptoms Genitourinary: Reports: No Symptoms Musculoskeletal: Reports: No Symptoms Skin: Reports: No Symptoms Neurological: Reports: No Symptoms Psychiatric: Reports: No Symptoms - Patient Data Vitals - Most Recent: Last Vital Signs Temp 98.1 F 07/12/20 08:12 Pulse 87 07/12/20 08:12 Resp 18 07/12/20 08:12 BP 124/72 07/12/20 08:12 Pulse Ox 93 L 07/12/20 08:12 Weight - Most Recent: 71.849 kg I&O - Last 24 Hours: Intake & Output 07/11/20 07/12/20 07/12/20 22:59 06:59 14:59 Intake Total 1040 400 120 Output Total 415 Balance 1040 -15 120 Med Orders - Current: Current Medications Acetaminophen (Tylenol) 650 mg PO Q4H PRN PRN Reason: Pain Last Admin: 07/12/20 10:51 Dose: 650 mg Documented by: Albuterol (Proventil Hfa) 0 gm INH Q4H PRN PRN Reason: SHORTNESS OF BREATH Aspirin (Halfprin) 81 mg PO DAILY [facility] Last Admin: 07/12/20 08:23 Dose: 81 mg Documented by: Docusate Sodium (Colace) 100 mg PO BID PRN PRN Reason: Constipation Last Admin: 07/11/20 21:00 Dose: 100 mg Documented by: Enoxaparin Sodium (Lovenox) 40 mg SUBCUT DAILY [facility] Last Admin: 07/12/20 08:22 Dose: 40 mg Documented by: Oxycodone HCl (Oxycodone) 5 mg PO Q4H PRN PRN Reason: Pain (moderate 4-6) Sodium Chloride (Saline Flush) 10 ml FLUSH ASDIRECTED PRN PRN Reason: Keep Vein Open Last Admin: 07/10/20 13:29 Dose: 10 ml Documented by: Discontinued Medications Dexamethasone (Dexamethasone) 6 mg PO DAILY [facility] Stop: 07/12/20 09:01 Last Admin: 07/12/20 08:21 Dose: 6 mg Documented by: Hydromorphone HCl (Dilaudid) 1 mg IVPUSH ONETIME ONE Stop: 07/10/20 13:14 Last Admin: 07/10/20 14:12 Dose: 0.5 mg Documented by: Sodium Chloride (Normal Saline) 1,000 mls @ 150 mls/hr IV ASDIRECTED LEXUS Last Admin: 07/10/20 13:29 Dose: 75 mls/hr Documented by: Lidocaine/Epinephrine (Xylocaine 1% With Epinephrine 1:100,000) 20 ml INJECT ONETIME ONE Stop: 07/10/20 13:15 Last Admin: 07/10/20 13:30 Dose: 20 ml Documented by: Midazolam HCl (Versed 1 Mg/Ml) 2 mg IVPUSH ONETIME ONE Stop: 07/10/20 13:15 Last Admin: 07/10/20 13:28 Dose: 1 mg Documented by: - Exam Quality Assessment: Supplemental Oxygen General: Alert, Oriented, Cooperative Lungs: Normal Respiratory Effort, Crackles (bibasilar) Cardiovascular: Regular Rate, Regular Rhythm, No Murmurs Sepsis Event Note - Evaluation Sepsis Screening Result: No Definite Risk - Focused Exam Vital Signs: Vital Signs Temp Pulse Resp BP Pulse Ox 07/12/20 08:12 98.1 F 87 18 124/72 93 L 07/12/20 03:35 97 07/12/20 03:26 97.5 F 84 20 135/81 94 L 07/12/20 00:05 97.9 F 76 16 97/83 96 07/12/20 00:00 96 - Problem List Review Problem List Initiated/Reviewed/Updated: No - My Orders Last 24 Hours: My Active Orders 07/11/20 14:06 Chest Tube Management [RC] BID 07/13/20 05:11 Chest 1V Frontal [CR] AM 07/14/20 05:11 Chest 1V Frontal [CR] AM 07/15/20 05:11 Chest 1V Frontal [CR] AM - Assessment Assessment:: Pt has fluffy lungs due to Covid 19 and now he sustained spontaneous pneumothorax. COmpleted 24 hrs on suction. Yesterday he was placed on waterseal and remained stable. - Plan Plan:: - Chest tube removed this AM. We will repeat CXR at 2PM to chesk. If small PTx, then we will continue to observe. IF no PTX, then may discharge him to home. - Continue diet, ambulation, pain control, DVT ppx as previously ordered. - If discharged today, he should follow up with me next Tue or . Plan discussed with the patient.
--- NOTE | 2020-07-12 14:56 | CR ---
Chest: Portable: upright view of the chest was obtained in expiration and inspiration. Comparison: Prior chest x-ray performed earlier the same day (08:09 AM). Very minimal pneumothorax is seen on the expiration view which decreases in size in the inspiration view. No other pneumothorax is seen. Diffuse parenchymal change is noted within both lungs. Heart size and mediastinum are stable. Bony structures show no gross abnormality. Impression: 1. Very minimal apical pneumothorax. 2. Stable diffuse increased parenchymal densities. Diagnostic code #3
--- NOTE | 2020-07-12 20:35 | PCM.SN.2 ---
- Free Text/Narrative Note: Very small pneumothorax noted on post-chest tube CXR. We will monitor the patient overnight and obtain a follow up Xray in the morning to make sure the pneumothorax is stable. If stable, the patient can potentially be discharged to home. Patient will be converted to inpatient status today.
[2020-07-12] MEDS: Docusate Sodium 100 MG Cap PO PRN (20:41)
[2020-07-13] MEDS: Enoxaparin 40 MG/0.4 ML Syringe SUBCUT SCH (08:22)
[2020-07-13] MEDS: Aspirin 81 MG Tab.EC PO SCH (08:22)
--- NOTE | 2020-07-13 08:40 | CR ---
Chest: 2 views of the chest were obtained. Study was obtained in inspiration and expiration. Comparison: Previous chest x-ray of 07/12/20. Findings: Previous pneumothorax is not definitely appreciated on the inspiratory or on the expiratory film. Diffuse parenchymal densities are seen which are stable. Heart size and mediastinum are stable. Scoliosis and degenerative change is seen within the spine. Impression: 1. Previous pneumothorax is no longer seen. 2. No change within bilateral pulmonary densities. Diagnostic code #3
--- NOTE | 2020-07-13 11:06 | PCM.PN ---
- General Info Date of Service: 07/13/20 Admission Dx/Problem (Free Text): Admission Diagnosis/Problem Admission Diagnosis/Problem Pneumothorax on right Subjective Update: Patient is stable. saturations remain > 92% on 3L by nasal cannula. No other major issues. Functional Status: Reports: Pain Controlled, Tolerating Diet, Ambulating, Urinating - Review of Systems General: Reports: No Symptoms HEENT: Reports: No Symptoms Pulmonary: Reports: Shortness of Breath (due to covid lungs) Cardiovascular: Reports: No Symptoms Gastrointestinal: Reports: No Symptoms Genitourinary: Reports: No Symptoms Musculoskeletal: Reports: No Symptoms Skin: Reports: No Symptoms Neurological: Reports: No Symptoms Psychiatric: Reports: No Symptoms - Patient Data Vitals - Most Recent: Last Vital Signs Temp 98.4 F 07/13/20 07:52 Pulse 75 07/13/20 07:52 Resp 20 07/13/20 07:52 BP 128/83 07/13/20 07:52 Pulse Ox 92 L 07/13/20 08:00 Weight - Most Recent: 72.03 kg I&O - Last 24 Hours: Intake & Output 07/12/20 07/13/20 07/13/20 22:59 06:59 14:59 Intake Total 1140 500 Output Total 450 Balance 1140 50 Med Orders - Current: Current Medications Acetaminophen (Tylenol) 650 mg PO Q4H PRN PRN Reason: Pain Last Admin: 07/12/20 20:38 Dose: 650 mg Documented by: Albuterol (Proventil Hfa) 0 gm INH Q4H PRN PRN Reason: SHORTNESS OF BREATH Aspirin (Halfprin) 81 mg PO DAILY [facility] Last Admin: 07/13/20 08:22 Dose: 81 mg Documented by: Docusate Sodium (Colace) 100 mg PO BID PRN PRN Reason: Constipation Last Admin: 07/12/20 20:41 Dose: 100 mg Documented by: Enoxaparin Sodium (Lovenox) 40 mg SUBCUT DAILY [facility] Last Admin: 07/13/20 08:22 Dose: 40 mg Documented by: Oxycodone HCl (Oxycodone) 5 mg PO Q4H PRN PRN Reason: Pain (moderate 4-6) Sodium Chloride (Saline Flush) 10 ml FLUSH ASDIRECTED PRN PRN Reason: Keep Vein Open Last Admin: 07/10/20 13:29 Dose: 10 ml Documented by: Discontinued Medications Dexamethasone (Dexamethasone) 6 mg PO DAILY [facility] Stop: 07/12/20 09:01 Last Admin: 07/12/20 08:21 Dose: 6 mg Documented by: Hydromorphone HCl (Dilaudid) 1 mg IVPUSH ONETIME ONE Stop: 07/10/20 13:14 Last Admin: 07/10/20 14:12 Dose: 0.5 mg Documented by: Sodium Chloride (Normal Saline) 1,000 mls @ 150 mls/hr IV ASDIRECTED [facility] Last Admin: 07/10/20 13:29 Dose: 75 mls/hr Documented by: Lidocaine/Epinephrine (Xylocaine 1% With Epinephrine 1:100,000) 20 ml INJECT ONETIME ONE Stop: 07/10/20 13:15 Last Admin: 07/10/20 13:30 Dose: 20 ml Documented by: Midazolam HCl (Versed 1 Mg/Ml) 2 mg IVPUSH ONETIME ONE Stop: 07/10/20 13:15 Last Admin: 07/10/20 13:28 Dose: 1 mg Documented by: - Exam Quality Assessment: Supplemental Oxygen General: Alert, Oriented, Cooperative Lungs: Normal Respiratory Effort, Crackles (bilaterally) Cardiovascular: Regular Rate, Regular Rhythm, No Murmurs Sepsis Event Note - Evaluation Sepsis Screening Result: No Definite Risk - Focused Exam Vital Signs: Vital Signs Temp Pulse Pulse Resp BP Pulse Ox 07/13/20 08:00 92 L 07/13/20 07:52 98.4 F 75 20 128/83 90 L 07/13/20 05:00 61 16 96 07/13/20 02:31 97.7 F 80 20 129/79 92 L 07/13/20 00:57 68 14 95 - Problem List Review Problem List Initiated/Reviewed/Updated: No - My Orders Last 24 Hours: My Active Orders 07/12/20 15:10 Patient Status [ADT] Routine 07/14/20 05:11 Chest 1V Frontal [CR] AM 07/15/20 05:11 Chest 1V Frontal [CR] AM - Assessment Assessment:: Pt has fluffy lungs due to Covid 19 and now he sustained spontaneous pneumothorax. COmpleted 24 hrs on suction. Yesterday he was placed on waterseal and remained stable. Chest tube removed yesterday. There was a very small apical right pneumothorax on a post-removal chest xray. The pneumothorax is not seen on this morning's chest xray. - Plan Plan:: - Pneumothorax has resolved. Patient will be discharged to home today. - Follow up with me in clinic on 07/17 Plan discussed with the patient.
[2020-07-13 12:39] VITALS: BP 112/57; PULSE 95
--- NOTE | 2020-07-15 17:47 | PCM.DCSUM1 ---
Discharge Summary - Hospital Course Free Text/Narrative:: Patient presented with right pneumothorax. he had Covid 19 with covid lungs. He is on 3L of oxygen at home. In the ED he was found to have right sided pneumothorax causing desaturations. I placed a 28 Fr right chest tube and treated the patient medically. Chest tube was removed on 07/12 and the patient was discharged to home on 07/13/2020 in stable condition. Diagnosis: Stroke: No - Discharge Data Discharge Date: 07/13/20 Discharge Disposition: Home, Self-Care 01 Condition: Good - Referral to Home Health Primary Care Physician: Mike Montoya MD - Patient Summary/Data Consults: Consultations 07/10/20 12:58 Consult to Physician [CONS] Stat - Patient Instructions Diet: Regular Diet as Tolerated Activity: As Tolerated Driving: May Drive Today Showering/Bathing: May Shower Showering/Bathing, Other: No bathing or swimming until the chest tube incision heals Wound/Incision Care: Keep Operative Site/Wound Site Clean and Dry Notify Provider of: Fever, Increased Pain, Swelling and Redness - Discharge Plan *PRESCRIPTION DRUG MONITORING PROGRAM REVIEWED*: No *COPY OF PRESCRIPTION DRUG MONITORING REPORT IN PATIENT DOMONIQUE: No Home Medications: Home Meds Acetaminophen [Tylenol] 500 mg PO Q4H PRN 07/10/20 [History] Albuterol Sulfate [Proventil Hfa] 2 puff INH ASDIRECTED 07/10/20 [History] Aspirin [Aspirin EC] 81 mg PO DAILY 07/10/20 [History] dexAMETHasone [Dexamethasone] 6 mg PO DAILY 07/10/20 [History] Oxygen Therapy Mode: Nasal Cannula (3L. This is baseline) Patient Handouts: COVID-19 Frequently Asked Questions, Home Oxygen Use, Adult, COVID-19: How to Protect Yourself and Others - CDC, Sepsis, Self Care, Adult Forms: ED Department Discharge Referrals: Mike Montoya MD [Primary Care Provider] - 07/14/20 12:45 pm (Please call and schedule a hospital follow up appointment with your primary care provider) Stacia Wynn MD [Physician] - (Please call and schedule a follow up appointment with Dr. Wynn for 07/17/20) - Discharge Summary/Plan Comment DC Time >30 min.: Yes - General Info Date of Service: 07/15/20 Admission Dx/Problem (Free Text: Admission Diagnosis/Problem Admission Diagnosis/Problem Pneumothorax on right Subjective Update: Patient is stable. saturations remain > 92% on 3L by nasal cannula. No other major issues. Functional Status: Reports: Pain Controlled, Tolerating Diet, Urinating, Incentive Spirometry - Review of Systems General: Reports: No Symptoms HEENT: Reports: No Symptoms Cardiovascular: Reports: No Symptoms Gastrointestinal: Reports: No Symptoms Musculoskeletal: Reports: No Symptoms Skin: Reports: No Symptoms Neurological: Reports: No Symptoms Psychiatric: Reports: No Symptoms - Patient Data Vitals - Most Recent: Last Vital Signs Temp 97.9 F 07/13/20 11:49 Pulse 95 07/13/20 11:49 Resp 18 07/13/20 11:49 BP 112/57 L 07/13/20 11:49 Pulse Ox 92 L 07/13/20 11:49 Weight - Most Recent: 72.03 kg Med Orders - Current: Current Medications Discontinued Medications Acetaminophen (Tylenol) 650 mg PO Q4H PRN PRN Reason: Pain Last Admin: 07/12/20 20:38 Dose: 650 mg Documented by: Albuterol (Proventil Hfa) 0 gm INH Q4H PRN PRN Reason: SHORTNESS OF BREATH Aspirin (Halfprin) 81 mg PO DAILY [facility] Last Admin: 07/13/20 08:22 Dose: 81 mg Documented by: Dexamethasone (Dexamethasone) 6 mg PO DAILY [facility] Stop: 07/12/20 09:01 Last Admin: 07/12/20 08:21 Dose: 6 mg Documented by: Docusate Sodium (Colace) 100 mg PO BID PRN PRN Reason: Constipation Last Admin: 07/12/20 20:41 Dose: 100 mg Documented by: Enoxaparin Sodium (Lovenox) 40 mg SUBCUT DAILY [facility] Last Admin: 07/13/20 08:22 Dose: 40 mg Documented by: Hydromorphone HCl (Dilaudid) 1 mg IVPUSH ONETIME ONE Stop: 07/10/20 13:14 Last Admin: 07/10/20 14:12 Dose: 0.5 mg Documented by: Sodium Chloride (Normal Saline) 1,000 mls @ 150 mls/hr IV ASDIRECTED [facility] Last Admin: 07/10/20 13:29 Dose: 75 mls/hr Documented by: Lidocaine/Epinephrine (Xylocaine 1% With Epinephrine 1:100,000) 20 ml INJECT ONETIME ONE Stop: 07/10/20 13:15 Last Admin: 07/10/20 13:30 Dose: 20 ml Documented by: Midazolam HCl (Versed 1 Mg/Ml) 2 mg IVPUSH ONETIME ONE Stop: 07/10/20 13:15 Last Admin: 07/10/20 13:28 Dose: 1 mg Documented by: Oxycodone HCl (Oxycodone) 5 mg PO Q4H PRN PRN Reason: Pain (moderate 4-6) Sodium Chloride (Saline Flush) 10 ml FLUSH ASDIRECTED PRN PRN Reason: Keep Vein Open Last Admin: 07/10/20 13:29 Dose: 10 ml Documented by: - Exam Quality Assessment: Reports: Supplemental Oxygen General: Reports: Alert, Oriented, Cooperative Lungs: Reports: Clear to Auscultation, Normal Respiratory Effort Cardiovascular: Reports: Regular Rate, Regular Rhythm, No Murmurs
== END 2020-07-13 12:45 | disposition home or self-care (01) | DRG 137 ==
LOC: JD.ED 11:29 → JD.MS 14:59 → OBSVTOIN 07-12 15:10
PROVIDERS: ADMIT Surgery; ATTEND Surgery
PROC: 0W9930Z Drainage of Right Pleural Cavity with Drainage Device, Percutaneous Approach (ICD-10-PCS; principal; 2020-07-10)
DX: U07.1 COVID-19 (principal); J93.83 Other pneumothorax; Z79.82 Long term (current) use of aspirin; Z79.899 Other long term (current) drug therapy
CPT/HCPCS: 36415; 71045; 71045-26; 80053; 84484; 85007; 85027; 85379; 85610; 85730; 86140; 93005; 93010; 94760; 94762; 96374; 96375; 99284; 99285-25; A9270-GY; J1170; J1650; J2250; J7030; J8540